=== PATIENT | male | born 2000 | race African-American/Black ===

== ENCOUNTER 2024-03-28 12:25 | Inpatient (IN) | payer OTHER ==
[~2024-03-28] VITALS: Ht 170.2 cm; Wt 52.0 kg
[2024-03-28] MEDS ORDERED: TESSALON P100 MG/CAP PO (13:18)
[2024-03-28] MEDS ORDERED: DOXYCYCLINE HY100 MG PO (13:19)
[2024-03-28] MEDS ORDERED: NS 1,000 ML IV SCH (14:15)
--- NOTE | 2024-03-28 14:23 | NUR ---
forming process line worker called pt's room phone, but there was no answer. 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
[2024-03-28 14:30] LABS: HEMATOCRIT 39.3 % (42.0-52.0); HEMOGLOBIN 12.5 g/dl (13.5-18.0); MEAN CELL VOLUME 80 fl (80.0-100.0); MEAN CORPUSCULAR HEMOGLOBIN 25 pg (27-31); MEAN CORPUSCULAR HGB CONC 32 g/dl (33.0-37.0); MEAN PLATELET VOLUME 9.1 fl (7.4-10.4); PLATELET COUNT 314 K/mm3 (130-400); RED BLOOD COUNT 4.94 M/mm3 (4.20-5.60); REDCELL DISTRIBUTION WIDTH-CV 13.2 % (11.5-14.5)
[2024-03-28 14:52] LABS: CALCIUM 9.3 mg/dL (8.4-10.2); CREATININE, serum 0.79 mg/dL (0.72-1.25); POTASSIUM 4.5 mEq/L (3.5-4.5)
[2024-03-28] MEDS ORDERED: *Potassium Replacement Protocol MC SCH (15:15)
--- NOTE | 2024-03-28 15:53 | NUR ---
universal worker assisted living received a call back from pt's brother, Ancelmo. He reports that pt lives in the dorms at [employer] and shares common spaces with other students. He states pt is seen at [facility] and obtains medications from there or [facility]. He reports to be independent with ADLS and uses no DME. He does not have a DPOA-HC. Brother reports their parents are in [place] and do not speak Slovak. He reports he will relay information to them as to not panic them. Ancelmo reports pt has paid around $1,500 then $250 to the school and thought this was for health insurance. He also thought the school was covering his hospital bill, but was unsure what the insurance was. Brother provided pt's number as [phone] and reports that he will not understand much medical information and he would like the RN or provider to call him and he can explain to his brother. SABI advised she will pass this along to the nurse. SABI reviewed nursing assessment which reports pt will need likely isolation following discharge. SABI attempted to discuss this with brother who will relay to patient to find options. He reports pt is on a limited income and he sends pt money for food and medicine. Ancelmo reports he resides in [place] and he is also in school in the [employer]. SABI sent a message to financial advising team to attempt to locate any insurance for pt through a residency program. SABI spoke with Director April Dumont about pt needing isolation, barriers, and unknown insurance. Discharge Plan: home, isolation needed
[2024-03-28 16:00] VITALS: BP_SYST 119
[2024-03-28 16:34] VITALS: BP 119/76; PULSE 99; TEMP 98.2
--- NOTE | 2024-03-28 17:51 | NUR ---
PATIENT AMBULATED TO MEDICAL FLOOR AT APPROX 1540 WITH N95 MASK ON. PATIENT IN NEGATIVE PRESSURE ROOM. PATIENT IS ALERT AND ORIENTED, BUT VERY NERVOUS TO BE HERE. SHOPPER INSIGHTS MANAGER COMPLETED INTAKE ASSESSMENT. VSS. THIS RN COMPLETED ADMISSION ASSESSMENT. NO SKIN ISSUES. THIS RN ATTEMPTED TO TWO IVS. BOTH ATTEMPTS FAILED. PATIENT WAS TEARFUL. PATIENT COMFORTED. DR GONZALEZ GAVE VERBAL ORDERS NOT TO HAVE AN IV. SCDS IN ROOM. PATIENT SITTING UP IN CHAIR. NEEDS ASSISTANCE ORDERING FOOD. HYGIENE ITEMS PLACED IN ROOM. PATIENT UNDERSTANDS TURKISH, BUT NEEDS FURTHER EXPLAINING AT TIME. 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 CALL LIGHT WITHIN REACH. DENIES FURTHER NEEDS OR CONCERNS AT THIS TIME.
--- NOTE | 2024-03-28 20:30 | NUR ---
UPON SHIFT ASSESSMENT, PAUL WAS SITTING AT BEDSIDE COUCH. HE IS PLEASANT AND A&O X 4, HOWEVER, HE BECAME SLIGHTLY TACHYCARDIC 110 BPM. HE CLAIMS THIS MAY BE D/T ANXIETY RELATED TO CURRENT Dx AND LIVING ARRANGEMENTS-DOUGH MOLDER AWARE. OTHER VS ARE WNL AND LUNG SOUNDS ARE CLEAR. STATES NO PLEURAL OR FLANK PAIN OR SOA. PATIENT HAS NO IV ACCESS, PER DAYSHIFT, LISA STATES NO IV ACCEPTABLE. CALL LIGHT WITHIN REACH. ROOMATES TO BRING LAPTOP AND OTHER NECESSITIES.
[2024-03-28 21:00] VITALS: BP_SYST 115
[2024-03-28 21:23] VITALS: BP 127/79; PULSE 113; TEMP 98.7
[2024-03-28 22:54] VITALS: BP 115/75; PULSE 98; TEMP 98.3
[2024-03-29] VITALS (12 sets, daily range): BP systolic 108–129; BP diastolic 62–80; PULSE 100–124; TEMP 97.9–101.3
--- NOTE | 2024-03-29 04:46 | NUR ---
CALL PLACED TO HOSPITALIST, JUSTIN, PATIENT MEWS SCORE 5- FEBRILE AT 101.3 AND TACHYCARDIC AT 113. PATIENT ALSO EXHIBITS ANXIETY AND STATES HE IS NERVOUS ABOUT FALLING BEHIND IN SCHOOL. TORB TO INITIATE IVF, LACTIC ACID TEST, TYLENOL AND ONE TIME DOSE ATARAX GIVEN.
[2024-03-29] MEDS ORDERED: Doxycycline Monohydrate 100 MG CAP PO SCH (04:50)
[2024-03-29] MEDS ORDERED: NS 500 ML IV ONE (05:00)
[2024-03-29] MEDS ORDERED: hydrOXYzine HCl 25 MG TAB PO ONE (05:00)
[2024-03-29] MEDS ORDERED: Acetaminophen 325 MG TAB PO PRN (05:00)
[2024-03-29] MEDS ORDERED: Ondansetron 4 MG/2 ML VIAL IV PRN (05:00)
[2024-03-29 05:59] LABS: HEMOGLOBIN 11.8 g/dl (13.5-18.0); MEAN CELL VOLUME 77 fl (80.0-100.0); MEAN CORPUSCULAR HEMOGLOBIN 26 pg (27-31); MEAN CORPUSCULAR HGB CONC 33 g/dl (33.0-37.0); MEAN PLATELET VOLUME 8.4 fl (7.4-10.4); PLATELET COUNT 294 K/mm3 (130-400); RED BLOOD COUNT 4.61 M/mm3 (4.20-5.60); REDCELL DISTRIBUTION WIDTH-CV 13.2 % (11.5-14.5)
[2024-03-29 06:07] LABS: HEMATOCRIT 35.7 % (42.0-52.0)
[2024-03-29 06:24] LABS: ALBUMIN 2.6 g/dL (3.5-5.0); CALCIUM 8.9 mg/dL (8.4-10.2); CREATININE, serum 0.78 mg/dL (0.72-1.25); MAGNESIUM 1.7 mg/dL (1.6-2.6); PHOSPHOROUS 4.1 mg/dL (2.3-4.7); POTASSIUM 4.2 mEq/L (3.5-4.5)
[2024-03-29 06:45] LABS: BAND 5 % (0-10); LYMPHOCYTE 27 % (20.0-51.0); NEUTROPHILS 58 % (42.0-75.2)
[2024-03-29 06:46] LABS: PLATELET ESTIMATE NORMAL (NORMAL)
[2024-03-29] MEDS ORDERED: LORazepam 2 MG/ML 1 ML VIAL IV PRN (09:30)
--- NOTE | 2024-03-29 09:58 | NUR ---
sanitation worker contacted Nubia at [facility] and confirmed that [facility] and the [facility] department were notified of the positive TB test. Worker notified Nubia that patient is medically ready to discharge. Nubia stated she will work on securing dining and apartment availability as well as transportation for patient today. Worker encouraged Nubia to have someone reach out to him due to his anxiety of this situation.
--- NOTE | 2024-03-29 15:50 | NUR ---
welfare eligibility worker spoke with patient via telephone to obtain permission for social work to speak with [facility] regarding housing and TB status. Patient provided permission for the hospital to speak with [facility]. SABI notified April Dumont whom will assist with contacting [facility]. SABI was notified by Dr. Jauregui that patient would likely discharge tomorrow. SABI notified April Dumont of this information.
--- NOTE | 2024-03-29 16:23 | NUR ---
PATIENT HAS BEEN RESTING IN BED TODAY. ALERT AND ORIENTED, STATES HE IS FEELING ANXIOUS AND WANTS TO LEAVE. PATIENT IS COMPLIANT, JUST NEEDS EXTRA EXPLANATION. VSS, PULSE SLIGHTLY TACHYCARDIC. PATIENT NOW FEBRILE. REMAINS ON ROOM AIR. PATIENT NOW HAS TWO IVS, ONE TO LEFT FOREARM, AND ANOTHER TO RIGHT WRIST. THIS NURSE PUT SPUTUM CUPS IN ROOM, AND EXPLAINED THE NEED FOR A SPUTUM SAMPLE. PATIENT GOING TO CT LATER, AND WILL BE NPO AT [place] FOR [facility]ONCOSCOPY.
--- NOTE | 2024-03-29 16:24 | NUR ---
PCT NOTIFIED THIS RN OF PATIENT'S TEMP AND TACHYCARDIA. HEART RATE 124 BPM AND TEMP 100.1. PATIENT IS ANXIOUS ABOUT SCHOOL. THIS RN ADMINISTERED ATIVAN AND TYLENOL PER SEP.
--- NOTE | 2024-03-29 16:45 | NUR ---
PATIENT DOWN TO CT VIA WHEELCHAIR. AIRBORNE PRECAUTIONS FOLLOWED, INCLUDING PATIENT. THIS NURSE WENT WITH PATIENT TO HELP HIM UNDERSTAND THE PROCEDURE AND PROVIDE SUPPORT.
[2024-03-29] MEDS ORDERED: Iohexol 300 - 100 ML VIAL IV ONE (16:51)
[2024-03-29] MEDS ORDERED: NS 100 ML IV ONE (16:56)
--- NOTE | 2024-03-29 17:00 | NUR ---
PATIENT BACK FROM CT. PATIENT TOLERATED PROCEDURE WELL. PATIENT SETTLED BACK INTO HIS ROOM.
--- NOTE | 2024-03-29 20:01 | NUR ---
Patient resting in bed. States he has some pain in his left chest sometimes at night but not currently. Denies any SOB. Chicken broth provided. Sputum sample obtained. Needs met. Assessment complete. IV in left hand and right AC flushe easily without complications. Call light and persoanl items in reach. Bed in low position.
[2024-03-30] VITALS (12 sets, daily range): BP systolic 112–130; BP diastolic 62–93; PULSE 81–120; TEMP 98.1–100.2
[2024-03-30 06:19] LABS: HEMOGLOBIN 11.1 g/dl (13.5-18.0); MEAN CELL VOLUME 79 fl (80.0-100.0); MEAN CORPUSCULAR HEMOGLOBIN 26 pg (27-31); MEAN CORPUSCULAR HGB CONC 32 g/dl (33.0-37.0); MEAN PLATELET VOLUME 8.4 fl (7.4-10.4); PLATELET COUNT 297 K/mm3 (130-400); RED BLOOD COUNT 4.33 M/mm3 (4.20-5.60); REDCELL DISTRIBUTION WIDTH-CV 13.2 % (11.5-14.5)
[2024-03-30 06:22] LABS: HEMATOCRIT 34.4 % (42.0-52.0)
--- NOTE | 2024-03-30 06:30 | NUR ---
Bedside report received from NITA Patel. Pt resting in bed with eyes closed and no complaints. Call light within reach and isolation precautions in place.
[2024-03-30 06:47] LABS: ALBUMIN 2.5 g/dL (3.5-5.0); CALCIUM 8.9 mg/dL (8.4-10.2); CREATININE, serum 0.74 mg/dL (0.72-1.25); MAGNESIUM 1.8 mg/dL (1.6-2.6); PHOSPHOROUS 4.8 mg/dL (2.3-4.7); POTASSIUM 3.8 mEq/L (3.5-4.5)
[2024-03-30 07:24] LABS: BAND 19 % (0-10); EOSINOPHIL 2 % (0-4); LYMPHOCYTE 20 % (20.0-51.0); METAMYELOCYTE 4 % (0-0); NEUTROPHILS 46 % (42.0-75.2); PLATELET ESTIMATE NORMAL (NORMAL)
[2024-03-30] MEDS ORDERED: LR 1,000 ML IV SCH ×2 (11:15→19:00)
--- NOTE | 2024-03-30 12:47 | NUR ---
CLAUS to retime LR order for 03/31/[address] Jauregui.
[2024-03-30 13:01] LABS: INR 1.4 (0.8-3.0); PROTHROMBIN TIME 15.3 SECONDS (9.7-12.8)
--- NOTE | 2024-03-30 22:31 | NUR ---
PATIENT RESTING IN BED. DENIES PAIN. STATES COUGH IS MOSTLY DRY AND VERY RARELY IS PRODUCTIVE. CALL LIGHT IS WITHIN REACH. BED IS LOCKED AND IN LOW POSITION.
[2024-03-31] VITALS (19 sets, daily range): BP systolic 99–121; BP diastolic 57–92; PULSE 80–121; TEMP 97.5–103.1
[2024-03-31 06:44] LABS: HEMOGLOBIN 11.2 g/dl (13.5-18.0); MEAN CELL VOLUME 80 fl (80.0-100.0); MEAN CORPUSCULAR HEMOGLOBIN 25 pg (27-31); MEAN CORPUSCULAR HGB CONC 32 g/dl (33.0-37.0); MEAN PLATELET VOLUME 8.6 fl (7.4-10.4); PLATELET COUNT 309 K/mm3 (130-400); RED BLOOD COUNT 4.43 M/mm3 (4.20-5.60); REDCELL DISTRIBUTION WIDTH-CV 13.3 % (11.5-14.5)
[2024-03-31 06:47] LABS: HEMATOCRIT 35.3 % (42.0-52.0)
[2024-03-31 07:18] LABS: ALBUMIN 2.5 g/dL (3.5-5.0); CALCIUM 8.8 mg/dL (8.4-10.2); CREATININE, serum 0.68 mg/dL (0.72-1.25); MAGNESIUM 1.9 mg/dL (1.6-2.6); PHOSPHOROUS 4.5 mg/dL (2.3-4.7)
[2024-03-31 07:24] LABS: BAND 13 % (0-10); EOSINOPHIL 3 % (0-4); LYMPHOCYTE 27 % (20.0-51.0); NEUTROPHILS 46 % (42.0-75.2); PLATELET ESTIMATE NORMAL (NORMAL)
--- NOTE | 2024-03-31 07:27 | NUR ---
Bedside report received from NITA Parsons. Pt resting in bed with eyes closed and no complaints. Call light within reach.
[2024-03-31] MEDS ORDERED: Tranexamic Acid 1,000 MG/10 ML VIAL ONE (08:10)
[2024-03-31] MEDS ORDERED: Lidocaine PF 1% (10 MG/ML) 5 ML VIAL ONE (08:10)
[2024-03-31] MEDS ORDERED: Esmolol 10 MG/ML 10 ML VIAL IV ONE (08:39)
[2024-03-31] MEDS ORDERED: Doxycycline Monohydrate 100 MG CAP PO SCH (09:14)
[2024-03-31] MEDS ORDERED: Lidocaine 2% Viscous 15 ML UNIT DOSE MM ONE (09:25)
[2024-03-31] MEDS ORDERED: Albuterol 0.083% Neb Soln 2.5 MG/3 ML UD IH ONE (09:45)
[2024-03-31] MEDS ORDERED: Albuterol 0.083% Neb Soln 2.5 MG/3 ML UD IH PRN (09:45)
--- NOTE | 2024-03-31 11:00 | NUR ---
TORB to discontinue NPO status and restart general diet.
--- NOTE | 2024-03-31 16:26 | NUR ---
torpedo worker was notified patient would not be discharging today. SABI will notify ELIANE when patient is medically ready for discharge as they will be arranging transportation for patient to return to his dorm and ELIANE will discuss his restrictions for isolation with him.
--- NOTE | 2024-03-31 16:34 | NUR ---
Dr. Jauregui notified by phone about elevated temperature of 102.2. PRN Tylenol administered as ordered. No new orders at this time. Call light within reach.
--- NOTE | 2024-03-31 20:30 | NUR ---
Patient resting in bed. Denies any pain. Needs met. Assessment complete. IV in left hand flushes but is painful. IV in right AC flushes easliy without complications. Call light and personal items in reach. Bed in low position.
--- NOTE | 2024-03-31 21:20 | NUR ---
Patient temp of 103.1 orally. Hospitalist Magan and charge Jolie notified. PRN tylenol given. Will recheck in about and hour.
[2024-04-01] VITALS (16 sets, daily range): BP systolic 98–144; BP diastolic 64–86; PULSE 76–122; TEMP 97.7–103.4
[2024-04-01] MEDS ORDERED: Ibuprofen 600 MG TAB PO PRN (03:30)
--- NOTE | 2024-04-01 06:24 | NUR ---
Patient resting in bed. Denies any pain. Patient has spiked 2 fevers over night both over 103 degrees fahrenheit. Hospitalist and charge notified both times and medications given. No other changes overnight.
--- NOTE | 2024-04-01 07:37 | NUR ---
Bedside report received from NITA Patel. Pt resting in bed with eyes closed and no complaints. Call light within reach.
[2024-04-01 09:15] LABS: HEMATOCRIT 41.3 % (42.0-52.0); MEAN CELL VOLUME 81 fl (80.0-100.0); MEAN CORPUSCULAR HEMOGLOBIN 25 pg (27-31); MEAN CORPUSCULAR HGB CONC 32 g/dl (33.0-37.0); MEAN PLATELET VOLUME 8.5 fl (7.4-10.4); PLATELET COUNT 358 K/mm3 (130-400); RED BLOOD COUNT 5.13 M/mm3 (4.20-5.60); REDCELL DISTRIBUTION WIDTH-CV 13.7 % (11.5-14.5)
[2024-04-01 09:37] LABS: ALBUMIN 2.7 g/dL (3.5-5.0); CALCIUM 9.6 mg/dL (8.4-10.2); CREATININE, serum 0.83 mg/dL (0.72-1.25); MAGNESIUM 2.2 mg/dL (1.6-2.6); PHOSPHOROUS 5.5 mg/dL (2.3-4.7); POTASSIUM 4.2 mEq/L (3.5-4.5)
--- NOTE | 2024-04-01 09:45 | NUR ---
Pt awake in bed eating breakfast. Shift assessment completed. VSS. Pt denies pain rating 0/10. INT to Rt AC and Lt hand patent with no swelling, redness, or drainage. Pt ambulates in room independently with no complications. Airborne precautions in place. Pt has no request at this time. Call light within reach.
[2024-04-01 10:25] LABS: BAND 20 % (0-10); HYPOCHROMIA 1+; LYMPHOCYTE 13 % (20.0-51.0); NEUTROPHILS 61 % (42.0-75.2); PLATELET ESTIMATE NORMAL (NORMAL)
--- NOTE | 2024-04-01 17:22 | NUR ---
Dr. Ramos notified of temperature 101.5, PRN Tylenol administered as ordered. No new orders at this time.
[2024-04-01] MEDS ORDERED: Isoniazid 100 MG TAB PO SCH (19:00)
[2024-04-01] MEDS ORDERED: rifAMPin 300 MG CAPSULE PO SCH (19:00)
[2024-04-01] MEDS ORDERED: Pyrazinamide 500 MG TAB PO SCH (19:00)
--- NOTE | 2024-04-01 19:45 | NUR ---
Patient resting in bed. Denies any pain. Needs met. Assessment complete. IV in right hand infiltrated, IV removed at this time. IV in right AC flushes easliy wihtout complicaiton. Needs met. Call light and personal items in reach. Bed in low position.
[2024-04-02] VITALS (11 sets, daily range): BP systolic 95–144; BP diastolic 53–103; PULSE 94–126; TEMP 98.2–100.1
--- NOTE | 2024-04-02 00:45 | NUR ---
PATIENT CARE ASSUMED FROM DANAE AT THIS TIME AND REPORT RECIEVED.
[2024-04-02 06:35] LABS: HEMOGLOBIN 11.1 g/dl (13.5-18.0); MEAN CELL VOLUME 78 fl (80.0-100.0); MEAN CORPUSCULAR HEMOGLOBIN 26 pg (27-31); MEAN CORPUSCULAR HGB CONC 33 g/dl (33.0-37.0); MEAN PLATELET VOLUME 8.9 fl (7.4-10.4); PLATELET COUNT 331 K/mm3 (130-400); RED BLOOD COUNT 4.36 M/mm3 (4.20-5.60); REDCELL DISTRIBUTION WIDTH-CV 13.2 % (11.5-14.5)
[2024-04-02 06:54] LABS: ALBUMIN 2.3 g/dL (3.5-5.0); CALCIUM 8.7 mg/dL (8.4-10.2); CREATININE, serum 0.77 mg/dL (0.72-1.25); MAGNESIUM 1.6 mg/dL (1.6-2.6)
--- NOTE | 2024-04-02 07:02 | NUR ---
Bedside report received from NITA Dave. Pt awake in bed with no complaints. Call light within reach.
[2024-04-02 07:04] LABS: HEMATOCRIT 34.1 % (42.0-52.0)
[2024-04-02 07:33] LABS: BAND 25 % (0-10); EOSINOPHIL 1 % (0-4); LYMPHOCYTE 12 % (20.0-51.0); NEUTROPHILS 58 % (42.0-75.2); PLATELET ESTIMATE NORMAL (NORMAL)
--- NOTE | 2024-04-02 14:00 | NUR ---
Data: Patient accepted spiritual care visit offered during Research Methods Instructor rounds. RN arrived to possibly discuss discharge. Visit ended early. Assessment: Patient hopes to discharge today. Plan of Care: Chaplains will remain available as needed/requested while Research Methods Instructor is admitted to this hospital.
--- NOTE | 2024-04-02 15:49 | NUR ---
PATIENTS ONLY PERIPHERAL IV TO RAC INFILTRATED. PATIENTS IV REMOVED. ED CALLED TO SEE IF US IS AVAILABLE FOR IV PLACEMENT, NONE AVAILABLE. MD CALLED AND INFORMED. PER MD PATIENT CAN BE OFF OF IV ANTX AND WILL TAKE ORAL, NO IV ACCESS OK.
[2024-04-02] MEDS ORDERED: Amoxicillin/Clavulanate K+ 875/125 MG TAB PO SCH (17:00)
--- NOTE | 2024-04-02 19:02 | NUR ---
Bedside report given to NITA Neal. Pt resting in bed with no complaints. Call light within reach.
--- NOTE | 2024-04-02 20:00 | NUR ---
UPON SHIFT ASSESSMENT, PAUL WAS IN BED AND ANXIOUS. HE ASKED SEVERAL TIME IF IT WAS POSSIBLE TO GO FROM ACTIVE TB TO INACTIVE TB IN 2 WEEKS HE WISHED TO RETURN TO THE [facility]AS[facility] AND HIS STUDIES. THIS NURSE EDUCATED PATIENT ON TB ANTIBIOTIC REGIMEN, RESPIRATORY AND HAND HYGIENE. VS ARE STABLE-AFEBRILE AND LUNG SOUNDS CLEAR. PATIENT STATES URINE IS AN ORANGE COLOR AND HE KNOWWS THIS MAY BE R/T RIFAMPIN SIDE EFFECT. PATIENT DENIES PAIN AND SOA. CALL LIGHT WITHIN REACH.
[2024-04-03] VITALS (12 sets, daily range): BP systolic 104–125; BP diastolic 69–86; PULSE 95–110; TEMP 97.6–98.6
--- NOTE | 2024-04-03 05:00 | NUR ---
TOWARDS THE END OF SHIFT PAUL WAS IN BETTER SPIRITS. HE REMAINED AFEBRILE THROUGHOUT THE NIGHT AND REPORTS HE DID NOT HAVE ANY NIGHT SWEATS. HE ANXIOUSLY AWAITS DISCHARGE. VS ARE WNL. CALL LIGHT WITHIN REACH.
[2024-04-03 09:31] LABS: ALBUMIN 2.6 g/dL (3.5-5.0); BILIRUBIN,TOTAL 0.7 mg/dL (0.2-1.2); CALCIUM 8.9 mg/dL (8.4-10.2); CREATININE, serum 0.76 mg/dL (0.72-1.25); TOTAL PROTEIN 7.9 g/dl (6.2-8.1)
[2024-04-03 09:39] LABS: HEMATOCRIT 37.2 % (42.0-52.0); HEMOGLOBIN 11.9 g/dl (13.5-18.0); MEAN CELL VOLUME 79 fl (80.0-100.0); MEAN CORPUSCULAR HEMOGLOBIN 25 pg (27-31); MEAN CORPUSCULAR HGB CONC 32 g/dl (33.0-37.0); MEAN PLATELET VOLUME 8.9 fl (7.4-10.4); PLATELET COUNT 354 K/mm3 (130-400); RED BLOOD COUNT 4.69 M/mm3 (4.20-5.60); REDCELL DISTRIBUTION WIDTH-CV 13.6 % (11.5-14.5)
--- NOTE | 2024-04-03 10:17 | NUR ---
PT RESTING IN BED, ALERT AND ORIENTEDX4. NO COMPLAINTS OF PAIN AT THIS TIME. ASSESSED PT. HELPED PT ORDER BREAKFAST. GAVE MORNING MEDS. NO OTHER COMPLAINTS AT THIS TIME. CALL LIGHT WITHIN REACH.
[2024-04-03 11:25] LABS: EOSINOPHIL 1 % (0-4); HYPOCHROMIA 1+; LYMPHOCYTE 29 % (20.0-51.0); MICROCYTOSIS 1+; NEUTROPHILS 59 % (42.0-75.2); PLATELET ESTIMATE NORMAL (NORMAL)
--- NOTE | 2024-04-03 11:46 | NUR ---
CERTIFIED MEDICAL RECORDS CODER collaborated care with NITA Bryan. Pt is not ms to d/c today. Randi reported she spoke with [facility] and they possibly will have the isolation room set up tomorrow. Potential d/c tomorrow (Wednesday 04/04). D/C: [facility] isolation room.
--- NOTE | 2024-04-03 21:00 | NUR ---
UPON SHIFT ASSESSMENT, PAUL WAS AWAKE IN BED AND IN GOOD SPIRITS-HE EAGERLY AWAITS DISCHARGE TOMORROW.VS ARE WNL AND HE REMAINS AFEBRILE. LUNG SOUNDS ARE CLEAR. CALL LIGHT WITHIN REACH.
[2024-04-04 01:00] VITALS: BP_SYST 112
[2024-04-04 01:36] VITALS: BP 112/80; PULSE 98; TEMP 97.9
[2024-04-04 04:30] VITALS: BP 114/73; PULSE 101; TEMP 98.3
[2024-04-04 05:53] VITALS: BP_SYST 114
--- NOTE | 2024-04-04 05:54 | NUR ---
PATIENT REMAINED AFEBRILE THROUGHOUT THE NIGHT, LUNG SOUNDS ARE CLEAR. RIFAMPIN AND ISONIAZID ADMINISTERED. PATIENT IS HAPPY TO DISCHARGE TODAY.
[2024-04-04 07:09] LABS: HEMOGLOBIN 11.7 g/dl (13.5-18.0); MEAN CELL VOLUME 79 fl (80.0-100.0); MEAN CORPUSCULAR HEMOGLOBIN 25 pg (27-31); MEAN CORPUSCULAR HGB CONC 32 g/dl (33.0-37.0); MEAN PLATELET VOLUME 8.3 fl (7.4-10.4); PLATELET COUNT 391 K/mm3 (130-400); RED BLOOD COUNT 4.64 M/mm3 (4.20-5.60); REDCELL DISTRIBUTION WIDTH-CV 13.5 % (11.5-14.5)
[2024-04-04 07:14] LABS: HEMATOCRIT 36.8 % (42.0-52.0)
[2024-04-04 07:25] LABS: ALBUMIN 2.6 g/dL (3.5-5.0); BILIRUBIN,TOTAL 0.3 mg/dL (0.2-1.2); CALCIUM 9.2 mg/dL (8.4-10.2); CREATININE, serum 0.73 mg/dL (0.72-1.25); POTASSIUM 3.9 mEq/L (3.5-4.5); TOTAL PROTEIN 8.1 g/dl (6.2-8.1)
[2024-04-04 07:40] LABS: BAND 9 % (0-10); EOSINOPHIL 3 % (0-4); LYMPHOCYTE 23 % (20.0-51.0); NEUTROPHILS 51 % (42.0-75.2)
[2024-04-04 07:41] LABS: METAMYELOCYTE 3 % (0-0); PLATELET ESTIMATE NORMAL (NORMAL)
[2024-04-04 08:00] VITALS: BP_SYST 109
[2024-04-04 08:10] VITALS: BP 109/76; PULSE 96; TEMP 98.3
--- NOTE | 2024-04-04 13:14 | NUR ---
THIS RN PROVIDED DISCHARGE EDUCATION AND INSTRUCTIONS. ALL QUESTIONS ANSWERED. PATIENT CALLED STAFF AT [facility] TO NOTIFY ABOUT DISCHARGE.
--- NOTE | 2024-04-04 14:25 | NUR ---
PATIENT ESCORTED OFF UNIT BY THIS RN. LOVELY STAFF PICKED UP PATIENT. ALL BELONGINGS WITH PATIENT.
--- NOTE | 2024-04-04 15:11 | NUR ---
merchandise worker collaborated with Nubia Maldonado ([phone]) and Franchesca Wilhelm ([facility] [phone]) for patient's discharge to his apartment, today. Franchesca provided list of home medications that she obtained from [facility] and confirmed that she would keep the medications with her and give them to the patient daily, starting . Nubia stated she would transport patient home today. Discharge plan: Home with [facility] nurse, Franchesca Wilhelm, providing patient's medications daily.
== END 2024-04-04 14:24 | disposition home or self-care (01) | DRG 179 ==
LOC: MEDICAL 12:25 → SURG 12:25 → MEDICAL 16:02
PROVIDERS: Internal Medicine; ADMIT Internal Medicine
PROC: 0B968ZX Drainage of Right Lower Lobe Bronchus, Via Natural or Artificial Opening Endoscopic, Diagnostic (ICD-10-PCS; principal; 2024-03-28)
PROC: 0B948ZX Drainage of Right Upper Lobe Bronchus, Via Natural or Artificial Opening Endoscopic, Diagnostic (ICD-10-PCS; 2024-03-28)
DX: A15.0 Tuberculosis of lung (principal)
CPT/HCPCS: J1805; J2060; J2543; J2704; J7120; Q3014; Q9967